=== PATIENT | male | born 1990 | race Caucasian/White ===

== ENCOUNTER 2024-06-24 09:05 | Emergency (ER) | payer SELFPAY ==
[2024-06-24 09:11] VITALS: BP 153/94
--- NOTE | 2024-06-24 09:55 | ED.GENMED ---
History of Present Illness
General
Chief Complaint: Musculo-Skeletal Complaint
Source: patient
Exam Limitations: none
Time Seen by Provider: 06/24/24 09:13
Nursing documentation reviewed up to this point in time: agreed with
History of Present Illness
History of Present Illness:
34-year-old male presenting to the emergency department today with concerns of an injury to his left foot after falling off a stool hitting the lateral aspect. Increased discomfort since the event which occurred last night. Has been able to walk
but has been limping denies numbness weakness or additional injuries. No breaks in the skin.
Past History
Past History
ED Past Medical History: None
ED Past Surgical History: None
Social History
Tobacco: Non-smoker
Alcohol: None
Drug: None
Living: with family
Review of Systems
Review of Systems
Allergies reviewed?: Yes
All Other Systems: ROS reviewed and negative except as documented in HPI and ROS
Phy Exam
Physical Exam
Physical Exam:
GENERAL: Alert , in no apparent distress
EYE: pupils equal and reactive
NECK: Supple, no significant adenopathy.
ENT: o/p clr, mmm.
CARDIAC: Regular rate and rhythm .
LUNGS: Clear breath sounds bilaterally, no acute respiratory distress, no wheezes/rales/rhonchi
ABDOMEN: Soft, without focal tenderness, no r/g, no cvat
NEUROLOGICAL: Alert and oriented, no focal neuro deficits
SKIN: Warm and dry, skin intact.
MUSCULOSKELETAL: Left press tender star signal to palpation to the lateral midfoot otherwise no tenderness to the remainder of the foot no breaks in the skin no significant swelling redness or warmth no discomfort throughout the ankle well perfused.
PSYCH: Normal and appropriate interaction.
Course
Orders/Labs/Results
Orders:
Orders
06/24/24 09:12
Foot, Left 3 View [CR Foot - Left Min 3 Views] Urgent
Comment:
Reason For Exam: pain, trauma
06/24/24 10:02
Crutches-Treatment ONCE
boot [Ortho Boot Left- Treatment] ONCE
Short or tall?: Short
Vital Signs
Initial and Last Documented VS:
Initial Vital Signs
Temp Pulse Resp BP Pulse Ox
98.7 F 78 18 153/94 100
06/24/24 09:11 06/24/24 09:11 06/24/24 09:11 06/24/24 09:11 06/24/24 09:11
Last Documented Vital Signs
Temp Pulse Resp BP Pulse Ox
98.7 F 78 18 153/94 100
06/24/24 09:11 06/24/24 09:11 06/24/24 09:11 06/24/24 09:11 06/24/24 09:11
MDM/Problems Addressed
MDM/Problems Addressed:
34-year-old male presenting to the emergency department today with concerns of an injury to his left foot after falling off a stool at work yesterday. Ongoing discomfort this morning. Tenderness to the lateral midfoot. X-ray showing potential
avulsion fracture to the cuboid which is at the site of patient's discomfort. Neuro vastly intact was placed in a boot otherwise given crutches and advised for weightbearing as tolerated will follow-up closely with Ortho. Return precautions given.
*Critical Care Note
Total Time (30-74mins, 75-104mins- exclusive of procedures): Not Applicable
ED Attending Note
-
Portions of this chart may have been created with voice recognition software.� Occasional wrong word or��sound alike� substitutions may have occurred due to the inherent limitations of voice recognition software.
Discharge Plan
Departure
Patient Disposition: Home (Routine Discharge)
Date of Disposition: 06/24/24
Time of Disposition: 10:16
Patient with high blood pressure during this ER visit?: No
Condition: Good
Covid-19: Not Applicable
Discharge Problem:
Closed fracture of cuboid bone of foot
Instructions: Foot Avulsion Fracture (DC)
Referrals:
Kermit Stuart DPM [Specified Professional Personl] - Follow up in 1 week
Melanie Currie MD [Family Provider] -
Stand Alone Forms: Return to Work
Activity Restrictions/Additional Instructions:
You came to the emergency department today with concerns of a foot injury. You were found have an avulsion fracture of your cuboid bone. Please weight-bear as tolerated and use the walking boot as well as crutches as needed. Please follow closely
with the foot doctor. Return to the emergency department any worsening, new or concerning symptoms.
Interventions
Interventions:
*Risk Screen - Suicide Last Done: 06/24/24 09:12
*General Assessment Last Done: 06/24/24 09:45
*Neglect/Abuse Screening Last Done: 06/24/24 09:12
*ED COVID-19 Vaccine History Last Done: 06/24/24 09:45
ED-Musculoskeletal Assessment Last Done: 06/24/24 09:47
Discharge Date and Time
Print Language: MACEDONIAN
[2024-06-24 10:43] VITALS: BP 125/75
== END 2024-06-24 10:45 | disposition home or self-care (01) ==
LOC: EMR 09:05
PROVIDERS: EMERGENCY PHYSICIAN Emergency Medicine; FAMILY PHYSICIAN Internal Medicine Geriatric Medicine
DX: S92.212A Displaced fracture of cuboid bone of left foot, initial encounter for closed fracture (principal); W08.XXXA Fall from other furniture, initial encounter
CPT/HCPCS: 99283; 73630